=== PATIENT | female | born 1960 | race Caucasian/White ===

== ENCOUNTER → 2017-08-01 | Outpatient (CLI) | payer OTHER ==
--- NOTE | 2017-08-01 15:46 | RAD ---
DATE: 08/01/2017 EXAM: DIGITAL DIAGNOSTIC BILATERAL, BREAST RIGHT HISTORY: Palpable abnormality in the right breast COMPARISON: Prior mammogram from 06/24/2014 This study was interpreted with the benefit of Computerized Aided Detection (CAD). The breast parenchyma is heterogeneously dense, which could reduce sensitivity of mammography. Breast parenchyma level C. FINDINGS: Bilateral CC and MLO views of the breasts were performed. Right breast: There is a high density mass identified in the upper outer right breast at middle depth for which reduction was performed. This finding appears improved since the prior examination from 06/24/2014. Targeted right breast ultrasound was performed at the 9:30 position, 3 and 4 cm from the nipple in the area of interest demarcated by a BB on the mammogram. There are at least 4 simple appearing cysts measuring up to 11 x 8 x 10 mm at the 9:30 position, 3 cm from the nipple. An additional simple cyst is identified measuring 8 x 7 x 11 mm at the 9:30 position, 4 cm from the nipple. Patient was advised that an ultrasound-guided fine-needle aspiration may be of benefit in the setting of pain. Findings were discussed with the patient's ordering clinician Dylon CUNNINGHAM at 3:10 PM on 08/01/2017. Left breast: There is a partly circumscribed mass in the upper outer left breast at posterior depth keeping with patient's history of fibrocystic changes. No suspicious masses, microcalcifications or areas of architectural distortion. IMPRESSION: 1. Simple cysts correspond with mammographic abnormality in the upper outer quadrant of the right breast at posterior depth compatible with benign findings. Recommend fine-needle aspiration of the cysts in the setting of right breast pain. 2. Benign finding small breast. BI-RADS CATEGORY: 2 BENIGN FINDING(S) RECOMMENDED FOLLOW-UP: [facility] RECOMMENDED PQRS compliance statement: Mammography is a sensitive method for finding small breast cancers, but it does not detect them all and is not a substitute for careful clinical examination. A negative mammogram does not negate a clinically suspicious finding and should not result in delay in biopsying a clinically suspicious abnormality. "Our facility is accredited by the [employer] Mammography [employer]."
== END | disposition home or self-care (01) ==
LOC: MAMMO 13:54
PROVIDERS: ATTEND Nurse Practitioner Family
DX: N63.10 Unspecified lump in the right breast, unspecified quadrant (principal)
CPT/HCPCS: 76641; 77066

== ENCOUNTER → 2020-06-02 | Outpatient (CLI) | payer OTHER ==
--- NOTE | 2020-06-02 13:59 | RAD ---
EXAM: Maxillofacial CT without contrast. HISTORY: Congestion. TECHNIQUE: Computed tomographic images of the maximal facial bones were obtained without contrast. *One or more of the following individualized dose reduction techniques were utilized for this examina tion: 1. Automated exposure control. 2. Adjustment of the mA and/or kV according to patient size. 3. Use of iterative reconstruction technique. COMPARISON: None. FINDINGS: There is a tiny inferior right maxillary sinus mucous retention cyst. No sinus opacificatio n or air-fluid level is seen. There is no sinus wall erosion or thickening. The ostiomeatal units are patent. There is no significant nasal septal deviation. The orbits are unremarkable. The mastoid air cells are clear. The visualized portions of the brain and calvarium are unremarkable. IMPRESSION: 1. Tiny right maxillary sinus mucous retention cyst. 2. No evidence of acute or chronic sinusitis. Electronically signed by: Helen Patterson MD (06/02/2020 1:56 PM) [id number]
== END ==
LOC: CT 13:24
PROVIDERS: ATTEND Family Medicine
DX: J34.1 Cyst and mucocele of nose and nasal sinus (principal); J34.89 Other specified disorders of nose and nasal sinuses
CPT/HCPCS: 70486

== ENCOUNTER → 2020-12-19 | Outpatient (CLI) | payer OTHER ==
--- NOTE | 2020-12-19 16:23 | RAD ---
Left foot 3 views. HISTORY: Foot pain 3 views were taken of the left foot. There is not evidence of an acute fracture or osseous abnormalit y. IMPRESSION: 1. No acute osseous abnormality noted in the left foot. Electronically signed by: Gee Long MD (12/19/2020 4:21 PM) [facility]
== END ==
LOC: RAD 15:31
PROVIDERS: ATTEND Nurse Practitioner Family
DX: M79.672 Pain in left foot (principal)
CPT/HCPCS: 73630